=== PATIENT | male | born 1960 | race Caucasian/White ===

== ENCOUNTER 2024-04-16 18:22 | Inpatient (IN) | payer OTHER ==
[~2024-04-16] VITALS: Ht 175.3 cm; Wt 113.4 kg
[~2024-04-16 18:22] MED LIST: DEXAMETHASONE SOD PHOS INJ 4 MG/ML SDV ONE; GLYCOPYRROLATE INJ 0.2 MG/ML VIAL ONE; HYDRALAZINE HCL 20 MG/ML VIAL ONE; KETOROLAC TROMETHAMINE 30 MG/ML VIAL ONE; LIDOCAINE HCL 2% LOCAL INJ 5 ML SDV VIAL INJ ONE; METOCLOPRAMIDE HCL 10 MG/2ML VIAL ONE; ONDANSETRON HCL INJ 2MG/ML 2ML 2 MG/ML VIAL ONE; PROPOFOL IV EMULSION 10 MG/ML 20 ML VIAL ONE; ROCURONIUM BROMIDE 10 MG/ML 5ML VIAL IV ONE; SEVOFLURANE INHAL SOLN 250 ML PEN BTL ONE; SUCCINYLCHOLINE CHLORIDE 20 MG/ML 10ML VIAL ONE
[2024-04-16 18:30] VITALS: TEMP 98.7
[2024-04-16] MEDS: ONDANSETRON HCL INJ 2MG/ML 2ML 2 MG/ML VIAL IV STA (19:17)
[2024-04-16] MEDS: SODIUM CHLORIDE 0.9% 1000ML 1,000 ML IV STA (19:18)
[2024-04-16] MEDS: Morphine 4mg INJECTION 4 MG/ML INJ IV STA (19:18)
[2024-04-16 19:26] LABS: BASOPHILS # (AUTO) 0.1 (0.0-0.1); BASOPHILS % 0.4 % (0.0-1.0); EOSINOPHILS # (AUTO) 0.2 (0.0-0.4); EOSINOPHILS % 1.5 % (0.0-6.0); HEMATOCRIT 45.5 % (38.2-49.6); HEMOGLOBIN 15.1 g/dL (14.0-18.0); LYMPHOCYTES # (AUTO) 2.4 (1.0-3.2); LYMPHOCYTES % 19.9 % (18.0-39.1); MEAN CORPUSCULAR HEMOGLOBIN 30.1 pg (28-32); MEAN CORPUSCULAR HGB CONC 33.2 g/dL (31-35); MEAN CORPUSCULAR VOLUME 90.8 fL (81-99); MONOCYTES # (AUTO) 1.3 (0.2-0.8); MONOCYTES % 10.2 % (4.4-11.3); NEUTROPHILS # (AUTO) 8.3 (2.1-6.9); NEUTROPHILS % 67.6 % (38.7-80.0); PLATELET COUNT 245 x10e3/uL (140-360); RED BLOOD COUNT 5.01 x10e6/uL (4.3-5.7); RED CELL DISTRIBUTION WIDTH 13.5 % (11.7-14.4); WHITE BLOOD COUNT 12.29 x10e3/uL (4.8-10.8)
[2024-04-16 19:35] LABS: BACTERIA,URINE MANY /HPF; BILIRUBIN,URINE 1+ (NEGATIVE); CLARITY,URINE CLEAR (CLEAR); COLOR,URINE YELLOW (YELLOW); EPITHELIAL CELLS,URINE FEW /LPF; GLUCOSE, URINE NEGATIVE (NEGATIVE); KETONES,URINE NEGATIVE (NEGATIVE); LEUKOCYTE ESTERASE ,URINE NEGATIVE (NEGATIVE); MUCUS,URINE MODERATE (RARE); NITRITE,URINE NEGATIVE (NEGATIVE); PH,URINE 5.5 (5 - 7); PROTEIN,URINE DIPSTICK 1+ (NEGATIVE); RBC,URINE 0-5 /HPF (0-5); URINE UROBILINOGEN 0.2 mg/dL (0.2 - 1); WBC,URINE (MAN) 0-5 /HPF (0-5)
[2024-04-16 19:36] LABS: HYALINE CASTS 0-1 (0-1)
[2024-04-16 19:41] LABS: ALBUMIN 3.6 g/dL (3.5-5.0); ALBUMIN/GLOBULIN RATIO 0.9 (0.8-2.0); ANION GAP 14.4 mmol/L (8-16); BILIRUBIN,TOTAL 0.6 mg/dL (0.2-1.2); CALCIUM 9.1 mg/dL (8.4-10.2); CREATININE, SERUM 1.24 mg/dL (0.72-1.25); TOTAL PROTEIN 7.4 g/dL (6.5-8.1)
[2024-04-16 19:42] LABS: POTASSIUM 3.4 mmol/L (3.5-5.1)
[2024-04-16 19:47] LABS: TROPONIN I 0.006 ng/mL (0-0.300)
[2024-04-16] MEDS ORDERED: IOPAMIDOL 370 MG/ML 100 ML INFUS..BTL INJ ONE (19:50)
[2024-04-16] MEDS: HYDRALAZINE HCL 20 MG/ML VIAL IV PRN (20:37)
[2024-04-16 20:38] VITALS: PULSE 83; RESP 18
[2024-04-16] MEDS ORDERED: ONDANSETRON HCL INJ 2MG/ML 2ML 2 MG/ML VIAL IV PRN (21:00)
[2024-04-16] MEDS ORDERED: Morphine 4mg INJECTION 4 MG/ML INJ IV PRN (21:00)
[2024-04-16 22:00] VITALS: BP 173/93; PULSE 95; RESP 19; TEMP 99; O2SAT 97
[2024-04-17] VITALS (10 sets, daily range): BP systolic 128–168; BP diastolic 79–97; PULSE 64–95; RESP 16–20; TEMP 97.3–98.7; O2SAT 91–98
[2024-04-17] MEDS: SODIUM CHLORIDE 0.9% 1000ML 1,000 ML IV SCH (00:39)
[2024-04-17] MEDS: FAMOTIDINE 20 MG/2 ML VIAL IV SCH (08:38)
[2024-04-17] MEDS ORDERED: NO HOME MEDS (10:36)
[2024-04-17 10:46] LABS: CHOL/HDL RATIO 4.6 (3.9-4.7); MAGNESIUM 1.9 MG/DL (1.3-2.1); PHOSPHORUS 2.3 MG/DL (2.3-4.7)
[2024-04-17 11:06] LABS: THYROID STIMULATING HORMONE 1.389 uIU/mL (0.350-4.940)
[2024-04-17 11:37] LABS: FREE T4 (FREE THYROXINE) 0.92 ng/dL (0.8-1.8)
[2024-04-17] MEDS ORDERED: BUPIVACAINE 0.25% 30ML SDV ONE (14:23)
[2024-04-17] MEDS ORDERED: FENTANYL CITRATE/PF 100MCG/2 ML INJ ONE (15:46)
[2024-04-17] MEDS ORDERED: Morphine 10mg syringe 10 MG/ML INJ ONE (15:46)
[2024-04-17] MEDS ORDERED: SUGAMMADEX SODIUM 200 MG/2 ML VIAL IV ONE (16:11)
[2024-04-17] MEDS ORDERED: HYDROCODONE/APAP 7.5MG-325MG 1 EA TAB PO PRN (16:45)
[2024-04-17] MEDS ORDERED: KETOROLAC TROMETHAMINE 30 MG/ML VIAL IV PRN (16:45)
[2024-04-17] MEDS ORDERED: ONDANSETRON HCL INJ 2MG/ML 2ML 2 MG/ML VIAL IV PRN (16:45)
[2024-04-18] VITALS (10 sets, daily range): BP systolic 136–174; BP diastolic 77–96; PULSE 54–70; RESP 16–20; TEMP 97.4–98; O2SAT 96–99
[2024-04-18 05:18] LABS: BASOPHILS % 0.1 % (0.0-1.0); EOSINOPHILS % 0.2 % (0.0-6.0); HEMATOCRIT 44.2 % (38.2-49.6); HEMOGLOBIN 14.3 g/dL (14.0-18.0); LYMPHOCYTES # (AUTO) 1.6 (1.0-3.2); LYMPHOCYTES % 12.1 % (18.0-39.1); MEAN CORPUSCULAR HGB CONC 32.4 g/dL (31-35); MEAN CORPUSCULAR VOLUME 92.7 fL (81-99); MONOCYTES # (AUTO) 1.1 (0.2-0.8); MONOCYTES % 7.8 % (4.4-11.3); NEUTROPHILS # (AUTO) 10.6 (2.1-6.9); NEUTROPHILS % 79.4 % (38.7-80.0); PLATELET COUNT 244 x10e3/uL (140-360); RED BLOOD COUNT 4.77 x10e6/uL (4.3-5.7); RED CELL DISTRIBUTION WIDTH 13.4 % (11.7-14.4); WHITE BLOOD COUNT 13.39 x10e3/uL (4.8-10.8)
[2024-04-18 05:57] LABS: ALBUMIN 3.2 g/dL (3.5-5.0); ALBUMIN/GLOBULIN RATIO 0.8 (0.8-2.0); ANION GAP 13.8 mmol/L (8-16); BILIRUBIN,TOTAL 0.5 mg/dL (0.2-1.2); CALCIUM 8.7 mg/dL (8.4-10.2); CREATININE, SERUM 1.19 mg/dL (0.72-1.25); POTASSIUM 3.8 mmol/L (3.5-5.1)
[2024-04-18 16:16] LABS: ANION GAP 11.8 mmol/L (8-16); CALCIUM 8.4 mg/dL (8.4-10.2); CREATININE, SERUM 0.89 mg/dL (0.72-1.25); POTASSIUM 3.8 mmol/L (3.5-5.1)
[2024-04-19 00:10] VITALS: BP 162/89; PULSE 71; RESP 17; TEMP 98.3; O2SAT 98
[2024-04-19 04:00] VITALS: BP 158/84; PULSE 72; RESP 18; TEMP 97.6; O2SAT 98
[2024-04-19 06:21] VITALS: PULSE 63; RESP 20; O2SAT 98
[2024-04-19 07:18] LABS: BASOPHILS % 0.4 % (0.0-1.0); EOSINOPHILS # (AUTO) 0.3 (0.0-0.4); EOSINOPHILS % 3.2 % (0.0-6.0); HEMATOCRIT 38.2 % (38.2-49.6); HEMOGLOBIN 12.3 g/dL (14.0-18.0); LYMPHOCYTES # (AUTO) 1.7 (1.0-3.2); MEAN CORPUSCULAR HEMOGLOBIN 29.9 pg (28-32); MEAN CORPUSCULAR HGB CONC 32.2 g/dL (31-35); MEAN CORPUSCULAR VOLUME 92.9 fL (81-99); MONOCYTES # (AUTO) 0.8 (0.2-0.8); MONOCYTES % 10.3 % (4.4-11.3); NEUTROPHILS % 63.7 % (38.7-80.0); PLATELET COUNT 243 x10e3/uL (140-360); RED BLOOD COUNT 4.11 x10e6/uL (4.3-5.7); RED CELL DISTRIBUTION WIDTH 13.5 % (11.7-14.4); WHITE BLOOD COUNT 7.83 x10e3/uL (4.8-10.8)
[2024-04-19 07:36] LABS: ANION GAP 10.7 mmol/L (8-16); CALCIUM 8.4 mg/dL (8.4-10.2); CREATININE, SERUM 1.01 mg/dL (0.72-1.25); POTASSIUM 3.7 mmol/L (3.5-5.1)
[2024-04-19] MEDS ORDERED: ONDANSETRON HCL 4 MG ORAL DISINTEGRATING TAB PO PRN (08:45)
[2024-04-19 08:58] VITALS: BP 171/97; PULSE 62; RESP 17; TEMP 97.7; O2SAT 97
[2024-04-19 10:39] VITALS: PULSE 74; RESP 22; O2SAT 96
[2024-04-19] MEDS ORDERED: TRAMADOL HCL 50 MG TAB PO PRN (10:45)
[2024-04-19] MEDS ORDERED: MELATONIN 3 MG TAB PO PRN (11:00)
[2024-04-19] MEDS: TRAMADOL HCL 50 MG TAB PO ONE (13:40)
[2024-04-19] MEDS: AMLODIPINE BESYLATE 5 MG TAB PO SCH (13:41)
[2024-04-19 15:45] VITALS: BP 173/95; PULSE 58; RESP 17; TEMP 97.5; O2SAT 100
[2024-04-19] MEDS ORDERED: LEVOFLOXACIN250 MG PO (18:53)
[2024-04-19] MEDS ORDERED: FLAGYL375 MG PO (18:53)
[2024-04-19] MEDS ORDERED: ONDANSETRON ODT4 MG PO (18:53)
[2024-04-19] MEDS ORDERED: NORVASC5 MG PO (18:53)
[2024-04-19] MEDS ORDERED: MELATONIN3 MG PO (18:53)
== END 2024-04-19 19:30 | disposition home or self-care (01) | DRG 397 ==
LOC: ER 18:33 → ERHOLD 20:23 → MED/SURG2 21:54
PROVIDERS: ADMIT Internal Medicine; ATTEND Internal Medicine
PROC: 0DTJ4ZZ Resection of Appendix, Percutaneous Endoscopic Approach (ICD-10-PCS; principal; 2024-04-17 15:03)
DX: K35.891 Other acute appendicitis without perforation, with gangrene (principal); K56.2 Volvulus; I10 Essential (primary) hypertension; I16.0 Hypertensive urgency; K80.20 Calculus of gallbladder without cholecystitis without obstruction; K57.90 Diverticulosis of intestine, part unspecified, without perforation or abscess without bleeding; M25.562 Pain in left knee; Z87.891 Personal history of nicotine dependence; Z82.49 Family history of ischemic heart disease and other diseases of the circulatory system; Z91.018 Allergy to other foods
CPT/HCPCS: 36415; 74177; 80048; 80053; 80061; 81001; 82550; 83036; 83690; 83735; 84100; 84439; 84443; 84484; 85025; 88304; 93005; 94799; 99284; C1766; J0330; J0360; J1100; J1885; J2001; J2270; J2405; J2543; J2765; J7030; Q9967